=== PATIENT | female | born 1980 | race Caucasian/White ===

== ENCOUNTER 2016-12-28 10:40 | Emergency (ER) | payer BC ==
[2016-12-28 10:50] VITALS: BP 153/82
--- NOTE | 2016-12-28 11:15 | ERNOTE ---
ENT HPI Date of Service: 12/28/16 Presenting Symptoms: other - right ear pain when she sneezed this morning Time Seen by Provider: 12/28/16 10:53 Source: patient Exam Limitations: no limitations - Immun/Allergies/Home Medications Immunizations: IMMUNIZATION HX Immunizations Up to Date Yes History of Influenza Vaccine No Hx Pneumococcal Vaccination No Allergies/Adverse Reactions: Allergies Allergy/AdvReac Type Severity Reaction Status Date / Time alprazolam [From Xanax] Allergy Verified 12/28/16 10:50 aspirin Allergy Verified 12/28/16 10:50 ziprasidone HCl [From Geodon] Allergy Verified 12/28/16 10:50 ziprasidone mesylate Allergy Verified 12/28/16 10:50 [From Geodon] Home Medications: HOME MEDICATIONS NK [No Home Medication] 12/28/16 [Last Taken Unknown] - History of Present Illness Narrative: 36 y/o patient presented to ER for right ear pain after she blew her nose. Date (Duration): 12/28/16 ENT Location: Present: ear (R) Prearrival Treatment: Present: no prearrival treatment Modifying Factors - Improves: Reports: rest Modifying Factors - Worsens: Reports: other - sneezing or blowing her nose Associated Symptoms - ENT: Reports: other - had a cold/flu 10 days ago. Review of Systems - Review of Systems Constitutional: Present: no symptoms reported EYE: Present: no symptoms reported ENT: Present: no symptoms reported, See HPI, ear pain. Absent: nose congestion , nasal drainage, throat swelling Respiratory: Present: no symptoms reported Cardiology: Present: no symptoms reported Gastrointestinal/Abdominal: Present: no symptoms reported Genitourinary: Present: no symptoms reported Musculoskeletal: Present: no symptoms reported Skin: Present: no symptoms reported Neurological: Present: no symptoms reported Endocrine: Present: no symptoms reported Hematologic/Lymphatic: Present: no symptoms reported Psych: Present: no symptoms reported - Patient's Past Medical History Patient History - Medical: No pertinent hx Patient History - Cardiac/Respiratory: No pertinent hx Patient History - Cancer: No Hx of Cancer Patient History - Surgical Procedures: , D & C Patient History - Other: None LMP (females 10-50): 2 weeks - Social History Living Situations: home Psych History: No pertinent hx Smoking Status: Never smoker - Immunizations Immunizations Up to Date: Yes Hx Pneumococcal Vaccination: No History of Influenza Vaccine: No Physical Exam - Physical Exam General Appearance: Present: wd/wn Eye Exam: Normal inspection: bilateral Ears, Nose, Throat: Present: normal pharynx, other - small amount of clear fluids observed behind right TM . Absent: abnormal TM (R), abnormal TM (L), sinus pain/drainage Neck: Present: normal inspection, supple, full range of motion. Absent: lymphadenopathy (R) Respiratory: Present: no respiratory distress, normal breath sounds, lungs clear Cardiovascular/Chest: Present: regular rate, rhythm Gastrointestinal/Abdominal: Present: normal bowel sounds Back Exam: Present: normal inspection Extremity Exam: Present: normal inspection Neurological Exam: Present: alert, oriented, normal mood/affect, no motor/ sensory deficits Skin Exam: Present: normal color Lymphatic Exam: Present: no adenopathy ED Progress - Vital Signs Patient's Vital Signs:: I have reviewed the patient's vital signs. Vital Signs: Vital Signs 12/28/16 10:46 Temperature 36.2 C L Pulse Rate 89 Respiratory 16 Rate Blood Pressure 153/82 O2 Sat by Pulse 98 Oximetry - Progress/Reassessment Chief Complaint: Earache Progress:: Improved Departure Clinical Impression: Eustachian tube dysfunction Qualifiers: Laterality: right Qualified Code(s): H69.81 - Other specified disorders of Eustachian tube, right ear - Departure Disposition: Home self-care Condition: Stable Instructions: Serous Otitis Media Additional Instructions: Continue home medications. Start flonase over the counter one spray each nostril twice a day until symptoms resolve. Referrals: Nidia Claros MD [Primary Care Provider] -
--- OUTSIDE RECORDS SUMMARY | 2016-12-28 11:25 | XMS REPORT | Continuity of Care Document ---
:1980 Author Organization [facility] ([facility]) [place] [address] Phone [phone] Care Team Providers Name Role Phone Kerry Curry Primary Care Provider [phone] Source Comments This disclosure is being made pursuant to the Care Everywhere program, applicable federal and state laws, and may not contain all informaitonavailable regarding this patient.[facility] ([facility]) Active Allergies and Adverse Reactions Allergen Noted Date Severity Reactions Comments Aspirin Shortness of breath,Urticaria (Hives) Current Medications Prescription Sig. Disp. Refills Start Date End Date Status VIT/FE Take by mouth Active FUMARATE/FA daily. (PRENAPLUS PO) FERROUS FUMARATE Take by mouth Active (IRON PO) daily. ibuprofen (MOTRIN) Take 1 Tab by mouth 90 Tab 3 10/18/2010 Active 600 mg tablet every 6 hours as needed for Pain. Indications: Pain oxyCODONE-acetamino Take 1 Tab by mouth 40 Tab 0 10/18/2010 Active phen (PERCOCET) every 4 hours as 5-325 mg per tablet needed. Indications: Pain Breast Pump Samantha Apply to nipples for 1 Each 0 10/18/2010 Active . Use as directed Indications: lacation sennosides Take 1 Tab by mouth 30 Tab 3 10/18/2010 Active (SENOKOT) 8.6 mg daily. Indications: tablet Constipation HEParin 10,000 inject 0.5 mL 50 mL 0 10/18/2010 Active unit/mL injection subcutaneously every 12 hours. Indications: Deep Vein Thrombosis Prevention HEParin, pf, 5000 inject 0.5 mL 42 Syringe 0 10/18/2010 Active unit/0.5 mL subcutaneously every injection syringe 8 hours. Indications: Deep Vein Thrombosis Prevention Active Problems Problem Noted Date H/o x 2. 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 Recommend weekly NST. Low 10/07 fluid on 09/30 at 6.3cm. Repeat 10.7 cm on 10/07 Obesity, BMI 36 10/07/2010 Factor V Leiden heterozygote - no personal h/o DVT/PE. Sister with PE at age 30. Patient tested due to this. Resolved Problems Problem Noted Date Resolved Date LACHELLE 10/18/2010. Labs: A+, VDRL neg, RI, pap WNL 10/07/2010 10/26/2010 (01/2010), GC/CT neg (01/2010), hep B neg, 1 hour GTT 140 with neg 3 hour Undesired fertility - local title 19 papers signed on 08/16, 10/07/201010/26 we have a copy Unspecified symptom associated with female genital organs 11/12/20082009 Abdominal or pelvic swelling, mass, or lump, generalized 11/11/20082009 Immunizations Name Dates Previously Given Next Due Tdap 10/16/2010 Social History Tobacco Use Types Packs/Day Years Used Date Former Smoker 0.25 4 Smokeless Tobacco: Never Used Alcohol Use Drinks/Week oz/Week Comments Yes Social - Not in . 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
== END 2016-12-28 11:19 | disposition home or self-care (01) ==
LOC: ER 10:40
DX: H69.81 Other specified disorders of Eustachian tube, right ear (principal)